=== PATIENT | female | born 1970 | race Caucasian/White ===

== ENCOUNTER 2024-02-07 13:14 | Emergency (ER) | payer SELFPAY ==
--- NOTE | 2024-02-07 13:32 | PC.NURSE ---
Pt to the intake desk and states I think we are going to go somewhere else because we called our dr and she told us that this hospital isnt in network and doesn't have psych tx This RN explained that we are happy to evaluate her and not to worry about that part of it. They state they still want to go somewhere else. Pt denies SI/HI.
== END 2024-02-07 13:44 | disposition left against medical advice (07) ==
LOC: ANHED 13:39
PROVIDERS: PCP Internal Medicine
DX: Z53.21 Procedure and treatment not carried out due to patient leaving prior to being seen by health care provider (principal)
CPT/HCPCS: 99199